=== PATIENT | female | born 1985 | race African-American/Black ===

== ENCOUNTER 2022-12-06 09:40 | Outpatient (REF) | payer OTHER, SELFPAY ==
[2022-12-06 10:50] LABS: MANUAL DIFF FLAG NO
[2022-12-06 10:52] LABS: Basophils Percent Auto 0.6 % (0-2); Eosinophils Absolute Auto 0.2 X10*3/uL (0.0-0.4); Hematocrit 37.8 % (37.0-47.0); Hemoglobin 12.2 g/dl (12.0-16.0); Lymphocytes Absolute Auto 2.2 X10*3/uL (1.2-4.9); Lymphocytes Percent Auto 44.1 % (20-40); Mean Corpuscular HGB Conc 32.3 g/dl (31.0-35.0); Mean Corpuscular Hemoglobin 28.2 pg (27.0-33.0); Mean Corpuscular Volume 87.5 fL (80.0-98.0); Mean Platelet Volume 11.2 fL (9.4-12.3); Monocytes Absolute Auto 0.4 X10*3/uL (0.1-1.2); Monocytes Percent Auto 8.5 % (2-11); Neutrophils Absolute Auto 2.2 x10*3/uL (2.0-8.3); Neutrophils Percent Auto 43.8 % (45-73); Platelet Count 302 X10*3/uL (160-400); Red Blood Count 4.32 X10*6/uL (4.20-5.50); Red Cell Distribution Width 15.4 % (11.0-16.0); White Blood Count 5.1 X10*3/uL (4.8-10.8)
[2022-12-06 11:11] LABS: Alanine Aminotransferase 8 U/L (0-31); Albumin Level 3.9 g/dL (3.5-5.0); Alkaline Phosphatase 49 U/L (39-117); Anion Gap 11 (12-20); Aspartate Amino Transferase 14 U/L (5-31); Bilirubin Total 0.4 mg/dL (0.0-1.0); Blood Urea Nitrogen 7 mg/dL (9-16); Calcium 8.9 mg/dL (8.4-10.2); Carbon Dioxide 25 mmol/L (22-29); Chloride 107 mmol/L (96-108); Cholesterol 188 mg/dL (<200); Estimated Glomerular Filt Rate > 60; Glucose Random 90 mg/dL (60-115); HDL Cholesterol 51 mg/dL (>40); LDL Cholesterol Calculated 121 mg/dL (<100); Potassium 4.1 mmol/L (3.3-5.1); Sodium 139 mmol/L (135-145); Total Protein 6.9 g/dL (6.5-8.0); Triglycerides 81 mg/dL (<150)
== END 2022-12-06 09:41 | disposition home or self-care (01) ==
LOC: HO.10HDL 09:40
PROVIDERS: Visit Provider Internal Medicine
DX: Z00.00 Encounter for general adult medical examination without abnormal findings (principal); R63.4 Abnormal weight loss; F32.9 Major depressive disorder, single episode, unspecified; N62 Hypertrophy of breast
CPT/HCPCS: 36415; 80053; 80061; 85025

== ENCOUNTER 2024-08-14 14:55 | Outpatient (REF) | payer OTHER, SELFPAY ==
--- OUTSIDE RECORDS SUMMARY | 2024-08-14 18:00 | XMS_ITS | Clinical Summary ---
Author Organization [facility] ity Address [address] [place] [address] Care Team Providers Care Nurse'S Aides Teacher Name Role Phone Unavailable Primary Care Provider Unavailabl e Social History Tobacco Use Types Packs/Day Years Used Date Smoking Tobacco: Never Assessed Comments Unknown Sex and Gender Information Value Date Recorded Sex Assigned at Not on file Legal Sex Female 7:40 PM EST Gender Identity Not on file Sexual Orientation Not on file Plan of Treatment Health Maintenance Due Date Last Done Comments DTaP,Tdap,and Td Vaccines (1 - Tdap) 2005 Hepatitis B Vaccines (1 of 3 - 19+ 3-dose series) 2005 Cervical Cancer Screening: P ap Smear 11/23/2007 COVID-19 Vaccine (2023-2 5 season) 2023 Influenza Vaccine (Season Ended) 2024 HIB Vaccines Aged Out No longer eligi ble based on patient's age to complete this topic HPV Vaccines Aged Out No longer eligi ble based on patient's age to complete this topic Hepatitis A Vaccines Aged Out No long er eligible based on patient's age to complete this topic IPV Vaccines Aged Out No longer eligi ble based on patient's age to complete this topic MMR Vaccines Aged Out No longer eligi ble based on patient's age to complete this topic Meningococcal ACWY Vaccine Aged Out N o longer eligible based on patient's age to complete this topic Meningococcal B Vaccine Aged Out No l onger eligible based on patient's age to complete this topic Pneumococcal Vaccine: Pediat rics (0 to 5 Years) and At-Risk Patients (6 to 64 Years) Aged Out No longer eligible b ased on patient's age to complete this topic RSV Immunization Patients Un hannah 20 months Aged Out No longer eligible b ased on patient's age to complete this topic Varicella Vaccines Aged Out No longer eligible based on patient's age to complete this topic
== END 2024-08-14 14:56 | disposition home or self-care (01) ==
LOC: HO.LAB 14:55
PROVIDERS: Visit Provider Internal Medicine
DX: Z13.89 Encounter for screening for other disorder (principal)

== ENCOUNTER 2024-09-21 09:04 | Outpatient (AMB) | payer OTHER, SELFPAY ==
--- OUTSIDE RECORDS SUMMARY | 2024-09-21 09:07 | XMS_ITS | Clinical Summary ---
Author Organization [facility] Address [address] [place] [address] Phone Care Team Providers Care Second Floor Operator Name Role Phone Penelope Joseph MD Primary Care Provider [phone] Social History Tobacco Use Types Packs/Day Years [...] 11/23/2007 COVID-19 Vaccine (2023-2 5 season) 2023 Depression Screening 08/16/2024 HIV Screening 08/16/2024 Hepatitis C Screening 08/16/2024 Social Influencers of Health Screening 08/16/2024 Influenza Vaccine (#1) 2024 Hypertension/CHF/CAD Annual BMP Blood Test 08/15/2025 08/15/2024 Cholesterol Screening (Lipid Panel) 08/15/2029 08/15/2024 HIB Vaccines Aged Out No longer eligi [...] 5 Years) and At-Risk Patients (6 to 49 Years) Aged Out No longer eligi ble based on patient's age to complete this topic RSV Immunization Patients Un hannah 20 months Aged Out No longer eligible b ased on patient's age to complete this topic Varicella Vaccines Aged Out No longer eligible based on patient's age to complete this topic Procedures Procedure Name Priority Date/Time Associated Diagnosis Comments THYROID STIMULATING HORMONE Routine 08/15/2024 4:04 PM EDT Obesity, unspecified Hypertension, essential LIPID PANEL WITH REFLEX TO DIRECT LDL Routine 08/15/2024 4:04 PM EDT Obesity, unspecified Hypertension, essential COMPREHENSIVE METABOLIC PANEL Routine 08/15/2024 4:04 PM EDT Obesity, unspecified Hypertension, essential from Last 3 Months Results * (ABNORMAL) Lipid panel with reflex to direct LDL (08/15/2024 4:04 PM EDT) Cholesterol 184 0 - 200 mg/dL LAB CHEMISTRY METHOD 08/15/2024 5:29 PM [facility] Triglycerides 68 0 - 150 mg/dL LAB CHEMISTRY METHOD 08/15/2024 5:29 PM [facility] HDL 53 >=40 mg/dL LAB CHEMISTRY METHOD 08/15/2024 5:29 PM [facility] LDL Calculated 117(H) 0 - 100 mg/dL LAB CHEMISTRY METHOD 08/15/2024 5:29 PM [facility] VLDL Cholesterol William 13.6 mg/dL LAB CHEMISTRY METHOD 08/15/2024 5:29 PM [facility] Non HDL Chol. (LDL+VLDL) 131 <145 mg/dL [facility] Chol/HDL Ratio 3.5 0.0 - 4.4 LAB CHEMISTRY METHOD 08/15/2024 5:29 PM EDT [facility] Blood Venous blood specimen / Unknown Venipuncture / Unknown 08/15/2024 4:04 PM EDT 08/15/2024 4:36 PM EDT Penelope Joseph MD LAB BLOOD ORDERABLES Final Re sult Performing Organization Address [facility]/ZIP Co de Phone Number [facility] [address] [place] [address], [place] [phone] * Thyroid stimulating hormone (08/15/2024 4:04 PM EDT) [facility] TSH 1.83 0.40 - 4.00 mcIU/mL LAB CHEMISTRY METHOD 08/15/2024 6:19 PM EDT [facility] Blood Venous blood specimen / Unknown Venipuncture / Unknown 08/15/2024 4:04 PM EDT 08/15/2024 4:36 PM EDT Penelope Joseph MD LAB BLOOD ORDERABLES Final Re sult Performing Organization Address [facility] de Phone Number [facility] [address] [place] [address], [place] [phone] * Comprehensive metabolic panel (08/15/2024 4:04 PM EDT) [facility] Sodium 138 133 - 145 mmol/L LAB CHEMISTRY METHOD 08/15/2024 5:29 PM EDT [facility] Potassium 4.2 3.5 - 5.5 mmol/L LAB CHEMISTRY METHOD 08/15/2024 5:29 PM EDT [facility] Chloride 106 96 - 110 mmol/L LAB CHEMISTRY METHOD 08/15/2024 5:29 PM EDT [facility] CO2 24 21 - 32 mmol/L LAB CHEMISTRY METHOD 08/15/2024 5:29 PM EDT [facility] Anion Gap 8 3 - 11 LAB CHEMISTRY METHOD 08/15/2024 5:29 PM [facility] Glucose 75 70 - 100 mg/dL LAB CHEMISTRY METHOD 08/15/2024 5:29 PM [facility] BUN 9 5 - 25 mg/dL LAB CHEMISTRY METHOD 08/15/2024 5:29 PM [facility] Creatinine 1.03 0.50 - 1.10 mg/dL LAB CHEMISTRY METHOD 08/15/2024 5:29 PM [facility] eGFR 72 >=60 mL/min/1. 73m2 LAB CHEMISTRY METHOD 08/15/2024 5:29 PM [facility] Comment:Calculation based on the Chronic Kidney Disease Epidemiology Collaboration (CKD-EPI) equation refit without adjustment for race. BUN/Creatinine Ratio 8.7 LAB CHEMISTRY METHOD 08/15/2024 5:29 PM [facility] Calcium 9.2 8.5 - 10.5 mg/dL LAB CHEMISTRY METHOD 08/15/2024 5:29 PM [facility] AST (SGOT) 23 10 - 42 unit/L LAB CHEMISTRY METHOD 08/15/2024 5:29 PM [facility] ALT (SGPT) 24 10 - 60 unit/L LAB CHEMISTRY METHOD 08/15/2024 5:29 PM [facility] Alkaline Phosphatase 53 42 - 121 unit/L LAB CHEMISTRY METHOD 08/15/2024 5:29 PM [facility] Total Protein 6.9 6.0 - 8.0 g/dL LAB CHEMISTRY METHOD 08/15/2024 5:29 PM [facility] Albumin 3.6 3.2 - 5.0 g/dL LAB CHEMISTRY METHOD 08/15/2024 5:29 PM [facility] Total Bilirubin 0.6 0.0 - 1.4 mg/dL LAB CHEMISTRY METHOD 08/15/2024 5:29 PM EDT [facility] Blood Venous blood specimen / Unknown Venipuncture / Unknown 08/15/2024 4:04 PM EDT 08/15/2024 4:36 PM EDT us Penelope Joseph MD LAB BLOOD ORDERABLES Final Re sult [facility] [address] [place] [address], [place] [phone] from Last 3 Months Insurance [facility] [employer] Care Teams Second Floor Operator Relationship Specialty Start Date End Date Penelope Joseph MD [address] [place] [address] [place] [address] PCP - General Internal Medicine 08/15/24
--- NOTE | 2024-09-21 09:12 | MHC.OFFVIS ---
Vital Signs 09/21/24 09:30 BP 132/76 Blood Pressure Location Lt brachial Position Sitting Pulse 76 Intake Visit Reasons: hypertrophy of breast, FHX malignant breast Intake Note: Pt states, I have a lot of back pain, shoulder pain, and my mother has breast cancer. c/o shoulder and back pain Utilities Equipment Repairer Required: No Allergies No Known Allergies Allergy (Verified 09/21/24 09:16) Medication List - Last Reconciled 09/21/24 by Jaret Bajwa MD No Known Home Meds HPI HPI hypertrophy of breast, FHX malignant breast: Details: [age] year old female referred for a family history of breast cancer. She says that her mother was diagnosed to have triple negative cancer in her mid 70s. Her grandmother was diagnosed to have breast cancer as well at around the same age. She has a maternal aunt who had breast cancer also in her 70s. She also was concerned a little bit because of what she fell as ?fullness? of the left breast. She is considering breast reduction surgery so this was referred to us prior to that in view of her family history. [facility] Medical History (Updated 09/21/24 @ 09:42 by Jaret Bajwa MD) Family history of breast cancer Breast pain Surgical History Hx of section Family History Mother Breast cancer Paternal Grandmother Breast cancer Maternal Grandmother Bone cancer Maternal Aunt Breast cancer Review of Systems Const Denies chills and Denies fever(s) Card Denies chest pain, Denies dyspnea and Denies dyspnea on exertion Resp Denies cough, Denies dyspnea and Denies dyspnea on exertion GI Denies hematochezia and Denies change in bowel habits Denies hematuria Musc Denies back pain and Denies limited range of motion Neuro Denies focal weakness and Denies convulsions Psych Denies depression and Denies mood swings Physical Exam Vital Signs: Last Vital Signs Pulse 76 09/21/24 09:30 BP 132/76 09/21/24 09:30 Const General: comfortable and no acute distress Orientation/consciousness: patient oriented x3 Neck Neck: Yes no lymphadenopathy Chest Other: Large and pendulous breasts on both sides, no palpable breast masses, no nipple or skin changes, no axillary lymphadenopathy Resp Auscultation: clear to auscultation bilaterally Cardio Rhythm: regular rhythm GI Palpation (GI): Soft to palpation, nontender and no guarding Neuro General: patient oriented x3 Assessment & Plan Assessment & Plan (1) Family history of breast cancer: Code(s): Z80.3 - Family history of malignant neoplasm of breast Category: Medical Plan: She has multiple family members on her mother's side with breast cancer. Her mother actually had triple negative breast cancer She therefore qualifies for genetic testing. I explained to her the implications of this test to herself and her family. She is interested so she will be arranged to have genetic counseling as well as genetic testing here in the office Current exam does not suggest any breast mass. I assured her about this finding. I did advise her to have a mammogram down the line if she is considering having her breast reduction procedure. Coding Level of Care Code New Pt Level 3 (39775) Diagnoses Family history of breast cancer Z80.3
[2024-09-21 09:30] VITALS: BP 132/76; PULSE 76
== END 2024-09-21 10:39 | disposition home or self-care (01) ==
PROVIDERS: PCP Internal Medicine; Visit Provider Surgery
DX: Z80.3 Family history of malignant neoplasm of breast (principal)
CPT/HCPCS: 99203

== ENCOUNTER → 2024-09-21 09:04 | Outpatient (BNVA) | payer OTHER, SELFPAY | PROVIDERS: PCP Internal Medicine; Visit Provider Surgery | DX: N62 Hypertrophy of breast (principal); Z80.3 Family history of malignant neoplasm of breast | CPT/HCPCS: 99202 ==